=== PATIENT | male | born 1945 | race Two or more races ===

== ENCOUNTER → 2020-05-30 13:50 | Outpatient (CLI) | payer OTHER ==
[~2020-05-30 13:50] MED LIST: AZITHROMYCIN500 MG; HYZAAR 100-121 UDTAB; NORVASC5 MG; SINGULAIR10 MG; XOPENEX0.63 MG/3
== END | disposition home or self-care (01) ==
LOC: LAB 13:50
PROVIDERS: ATTEND Urology
DX: R97.20 Elevated prostate specific antigen [PSA] (principal)

== ENCOUNTER 2020-06-09 07:11 | Outpatient (CLI) | payer OTHER | END 2020-06-09 07:15 | disposition home or self-care (01) | LOC: SONOGRAMA 07:11 | PROVIDERS: ATTEND Urology | DX: D29.1 Benign neoplasm of prostate (principal); R97.20 Elevated prostate specific antigen [PSA] ==

== ENCOUNTER 2020-06-13 02:39 | Inpatient (IN) | payer OTHER ==
[~2020-06-13] VITALS: Ht 172.7 cm; Wt 84.4 kg
== END 2020-06-15 09:39 | disposition home or self-care (01) | DRG 919 ==
LOC: ER 02:39 → SEC-K 08:03 → SURH 06-14 17:45
PROVIDERS: ADMIT Urology; ATTEND Urology
DX: K91.840 Postprocedural hemorrhage of a digestive system organ or structure following a digestive system procedure (principal); U07.1 COVID-19; K62.5 Hemorrhage of anus and rectum; R31.0 Gross hematuria; I10 Essential (primary) hypertension; Y83.8 Other surgical procedures as the cause of abnormal reaction of the patient, or of later complication, without mention of misadventure at the time of the procedure